=== PATIENT | female | born 1990 | race American Indian/Alaskan Native ===

== ENCOUNTER 2018-03-30 22:44 | Outpatient (CLI) | payer OTHER ==
[2018-03-30 23:37] VITALS: BP 117/70
--- NOTE | 2018-03-31 01:32 | Ultrasound Report ---
FINAL REPORT EXAM: US OB BPP WO NON-STRESS HISTORY: ?leaking fluid TECHNIQUE: Real-time sonography was performed of the gravid uterus and images are submitted for inte rpretation. PRIORS: None. FINDINGS: The heart is beating at a rate of 146 beats per minute. Amniotic fluid index is normal at 15.8 cm. Biophysical profile: Breathin Movement: 2 Tone: 2 Fluid volume: 2 IMPRESSION: Normal biophysical profile, 09/29
--- NOTE | 2018-03-31 01:36 | Ultrasound Report ---
FINAL REPORT EXAM: US OB LIMITED HISTORY: ?leaking fluid TECHNIQUE: Limited real-time sonography was performed of the gravid uterus and images are submitted for interpretation. PRIORS: None. FINDINGS: There is a single fetus in the uterus in a cephalic presentation. The amniotic fluid index is normal at 15.8 cm. The heart is beating at a rate of 146 beats per minute. IMPRESSION: Normal amniotic fluid index
== END 2018-03-31 01:36 | disposition home or self-care (01) ==
LOC: TRG 22:44
PROVIDERS: ATTEND Obstetrics & Gynecology
DX: O42.92 Full-term premature rupture of membranes, unspecified as to length of time between rupture and onset of labor (principal); Z3A.40 40 weeks gestation of pregnancy; Z87.891 Personal history of nicotine dependence; Z91.040 Latex allergy status
CPT/HCPCS: 59025; 76815; 76819

== ENCOUNTER 2018-04-01 16:05 | Inpatient (IN) | payer OTHER ==
[2018-04-01] MEDS ORDERED: XYLOCAINE 2% INFILTRATI ONE (16:43)
[2018-04-01] MEDS ORDERED: BRETHINE IVP PRN (16:43)
[2018-04-01] MEDS ORDERED: MINERAL OIL PO PRN (16:43)
[2018-04-01] MEDS ORDERED: BRETHINE SUB-Q PRN (16:43)
--- NOTE | 2018-04-01 16:43 | History and Physical Report ---
History of Present Illness Date of examination: 04/01/18 Date of admission: 04/01/2018 Chief complaint: contractions History of present illness: Pt presents in active labor. EDC Confirmation: 03/30/2018 Gestational Age: 13 2/7 weeks Past History : 1 Term Births: 0 Premature Births: 0 Living Children: 0 Para: 0 Mult. Births: 0 Prev : 0 Prev. attempt? 0 Aborta: 0 Elect. Ab: 0 Spont. Ab: 0 Ectopics: 0 Past Medical History: Chronic BV Past Surgical History: negative Past Medical History Anesthesia Complications: negative Anemia: negative Autoimmune Disorder: negative Bleeding Disorder: negative Blood Transfusions: negative Breast Disease: negative Diabetes: negative Heart Disease: negative Hypertension: negative Hepatitis/Liver Disease: negative Kidney Disease/UTI: negative Neurologic/Epilepsy/Migraines: negative Phlebitis/Varicosities: negative Psychiatric: negative Pulmonary Disease/Asthma: negative Thyroid Disease: negative Hospitalizations: negative Surgery (Non-bleach mixer): negative Abnormal PAP: negative Family Hx: No known family medical hx Social Hx: former smoker no ETOH or drugs Works at [employer] Infection History Hx of STD: none HIV Risk Eval: no Hepatitis B Risk Eval: low risk Personal hx. of genital herpes: no Partner hx. of genital herpes: no Rash, Viral, or Febrile illness since last LMP? no Varicella/Chicken Pox Status: Previous Disease Genetic History Congenital Heart Defect: Mom: no Dad: no Jaiden Disease: Mom: no Dad: no Thalassemia Mom: no Dad: no Neural Tube Defect Mom: no Dad: no Down's Syndrome Mom: no Dad: no Jaspal-Sachs Mom: no Dad: no Sickle Cell Disease/Trait Mom: no Dad: no Hemophilia Mom: no Dad: no Muscular Dystrophy Mom: no Dad: no Cystic Fibrosis Mom: no Dad: no [place] Chorea Mom: no Dad: no Mental Retardation Mom: no Dad: no Fragile X Mom: no Dad: no Other Genetic/Chromosomal Disorder Mom: no Dad: no Child w/other defect Mom: no Dad: no Enviromental Exposures Xray Exposure: no Medication, drug, or alcohol use since LMP: no Chemical/Other Exposure: no Exposure to Cat Liter: no Hx of Parvovirus (Fifth Disease): no Occupational Exposure to Children: none Active Medications (reviewed today): None Current Allergies (reviewed today): * LATEX (Critical) Past History Past Medical History: no pertinent history Past Surgical History: no surgical history Family/Genetic History: none Social history: no significant social history, single - Obstetrical History Expected Date of Delivery: 03/30/18 Actual Gestation: 40 Week(s) 2 Day(s) : 1 Medications and Allergies Allergies Allergy/AdvReac Type Severity Reaction Status Date / Time Latex, Natural Rubber Allergy Itching Verified 03/31/18 00:00 Home Medications Medication Instructions Recorded Confirmed Last Taken Type Triamcinolone 0.1% [Kenalog] 1 applic TP PRN 01/30/18 03/30/18 03/30/18 History - Vital Signs Vital signs: Vital Signs Pulse BP 78 114/73 04/01/18 16:22 04/01/18 16:22 Temp Pulse Resp BP Pulse Ox 98.4 F 78 18 114/73 04/01/18 16:26 04/01/18 16:22 04/01/18 16:26 04/01/18 16:22 - Physical Exam Lungs: Positive: Clear to auscultation, Normal air movement Abdomen: Positive: normal appearance, soft. Negative: distention, tenderness Genitourinary (Female): Positive: normal external genitalia, normal perenium, o ther (no lesions noted) Vulva: both: normal (no lesions noted) - Obstetrical FHR: category 1 Results Result Diagrams: 04/01/18 17:33 All other labs normal. Assessment and Plan - Patient Problems (1) 40 weeks gestation of Current Visit: Yes Status: Acute (2) Active labor at term Current Visit: Yes Status: Acute
[2018-04-01] MEDS ORDERED: LACTATED RINGERS 1,000 ML IV SCH (17:00)
[2018-04-01] MEDS ORDERED: PITOCin/NS 30 UNIT/500ML 30 UNITS/500 ML BAG IV SCH ×2 (17:00)
[2018-04-01] MEDS ORDERED: PITOCin/NS 20 UNIT/1000ML DRIP 20 UNITS/1,000 ML BAG IV SCH (17:00)
[2018-04-01] MEDS: SUBLIMAZE IV PRN ×2 (17:44→21:34)
[2018-04-01 17:57] LABS: Hematocrit 35.7 % (30.3-42.9); Hemoglobin 12.4 gm/dl (10.1-14.3); Mean Corpuscular HGB Conc 35 % (30-34); Mean Corpuscular Volume 89 fl (79-97); Platelet Count 245 K/mm3 (140-440); Red Cell Distribution Width 15.6 % (13.2-15.2)
--- NOTE | 2018-04-01 19:04 | Progress Note ---
Assessment and Plan - Patient Problems (1) 40 weeks gestation of Current Visit: Yes Status: Acute (2) Active labor at term Current Visit: Yes Status: Acute Plan to address problem: -wants little intervention at this time -anticipate -will re-evaluate in 2hours to access need for AROM with internal monitor placement. Subjective - Subjective Date of service: 04/01/18 Principal diagnosis: IUP at 40 2/7 with active labor Interval history: Pt c/o pain with the contractions and request more meds. I advised pt that she just hat iv pain meds and that they are scheduled for every 2 hours and she is not able to get more meds at this time. I d/w need to AROM to help her labor along/progress. She states she agrees with this. I d/w and her mother and other support person that if her cx remains at 5-6cm in 2hrs when I come back to examine her that I would AROM at this time or if baby is showing signs of distress I would AROM her. I s/w getting epidural, pt mother encouraged her that she can labor without out it. I advised that she is in active labor and can obtain epidural whenever she desires. She and her mother expressed understanding. Patient reports: movement normal, contractions, no new complaints, no loss of fluid Objective - Vital Signs Vital Signs: Vital Signs - 12hr 04/01/18 04/01/18 04/01/18 16:22 16:26 17:55 Temperature 98.4 F 96.5 F L Pulse Rate 78 57 L Respiratory 18 14 Rate Blood Pressure 114/73 118/69 Blood Pressure 118/69 [Left] - Exam FHR: category 1 Cervical Dilatation: 6 Cervical Effacement Percentage: 90 station: -1 Uterine Contraction Pattern: Regular Uterine Tone Measurement Phase: Resting Uterine Contraction Intensity: Moderate - Labs Labs: Abnormal Labs 04/01/18 17:33 MCHC 35 H RDW 15.6 H Laboratory Results - last 24 hr 04/01/18 04/01/18 17:33 17:33 WBC 9.5 RBC 4.00 Hgb 12.4 Hct 35.7 MCV 89 MCH 31 MCHC 35 H RDW 15.6 H Plt Count 245 Blood Type O POSITIVE Antibody Screen Negative
--- NOTE | 2018-04-01 21:34 | Progress Note ---
Assessment and Plan - Patient Problems (1) 40 weeks gestation of Current Visit: Yes Status: Acute (2) Active labor at term Current Visit: Yes Status: Acute Plan to address problem: -S/P AROM -LABOR PROGRESSING -ANTICIPATE -DECLINES EPIDURAL SO WILL GIVE IV PAIN MEDS AT THIS TIME Subjective - Subjective Date of service: 04/01/18 Principal diagnosis: IUP at 40 2/7 with active labor Interval history: s/p AROM with clear fluid noted. Pt tolearate procedure well. Cx 8/100/0 after AROM. No internal monitors placed as pt making good cervical change and for the most part is now back on labor curve. No pitocini has been started as she is tito regularly on her own. Plan of care which is expectant management and intervention when/if needed was d/w pt and her mother and foc present at the bedside. All questions were addressed and answered. Patient reports: movement normal, contractions, no new complaints, no loss of fluid Objective - Vital Signs Vital Signs: Vital Signs - 12hr 04/01/18 04/01/18 04/01/18 16:22 16:26 17:55 Temperature 98.4 F 96.5 F L Pulse Rate 78 57 L Respiratory 18 14 Rate Blood Pressure 114/73 118/69 Blood Pressure 118/69 [Left] - Exam FHR: category 1 Cervical Dilatation: 8 (AROM: CLEAR FLUID NOTED) Cervical Effacement Percentage: 100 station: 0 Uterine Contraction Pattern: Regular Uterine Tone Measurement Phase: Resting Uterine Contraction Intensity: Moderate Extremities: normal Deep Tendon Reflex Grade: Normal +2 - Labs Labs: Abnormal Labs 04/01/18 17:33 MCHC 35 H RDW 15.6 H Laboratory Results - last 24 hr 04/01/18 04/01/18 17:33 17:33 WBC 9.5 RBC 4.00 Hgb 12.4 Hct 35.7 MCV 89 MCH 31 MCHC 35 H RDW 15.6 H Plt Count 245 Blood Type O POSITIVE Antibody Screen Negative
[2018-04-02] MEDS ORDERED: XYLOCAINE 2% INFILTRATI ONE (00:04)
[2018-04-02] MEDS ORDERED: METHERGINE IM ONE ×2 (00:17→03:27)
--- NOTE | 2018-04-02 00:50 | Procedure Note ---
OB Delivery Note - Delivery Date of Delivery: 04/01/18 (@2349pm) Surgeon: WERO PLATA Estimated blood loss: other (400cc) - Vaginal Delivery presentation: vertex Delivery position: OA Delivery induction: none Delivery augmentation: rupture of membranes Delivery monitor: external FHT, external uterine Route of delivery: Delivery placenta: manual (due to placenta being at the cervix and cord starting to separate from placenta) Delivery cord: nuchal cord (times two. Tight. clamped x2 and easily reduced) Episiotomy: none Delivery laceration: 2nd degree (peineal) Delivery repair: vicryl (3-0) Anesthesia: intravenous (lidocaine w/o epi) Delivery comments: Delivery as above was not complicated. Ant shoulder and rest of infant delivered without difficulty. Nuchal cord clamped and reduced as noted above. placed on maternal abdomen. Placenta delivered with manual extraction as above after cord blood was collected. 2nd degree perineal laceration was noted and repaired with 3-0 vicrly in usual fashion. EBL 400ml. Uterine atony noted and relived with bimanual massage and methergine im times one dose. Mother and infant stable in LDR. - A at 1 minute: 8 at 5 minutes: 9 Gender: Male (8lbs 10.6oz)
[2018-04-02] MEDS ORDERED: LANSINOH TP PRN (00:51)
[2018-04-02] MEDS ORDERED: TUCKS PAD TP PRN (00:51)
[2018-04-02] MEDS ORDERED: DULCOLAX PR PRN (00:51)
[2018-04-02] MEDS ORDERED: TYLENOL PO PRN (00:51)
[2018-04-02] MEDS ORDERED: ZOFRAN IV PRN (00:51)
[2018-04-02] MEDS ORDERED: SODIUM CHLORIDE FLUSH SYRINGE 10 ML IV NR (01:00)
[2018-04-02] MEDS ORDERED: PITOCin/NS 20 UNIT/1000ML DRIP 20,000 MILLIUNITS/1,000 ML BAG IV ONE (02:32)
[2018-04-02] MEDS: IBUPROFEN PO SCH ×3 (03:20→17:33)
[2018-04-02] MEDS ORDERED: PITOCin/NS 20 UNIT/1000ML DRIP 20 UNITS/1,000 ML BAG IV SCH (04:00)
--- NOTE | 2018-04-02 09:16 | Progress Note ---
Assessment and Plan - Patient Problems (1) Encounter for full-term uncomplicated delivery Current Visit: Yes Status: Acute Plan to address problem: day #1. Patient without nausea vomiting. Patient tolerating diet well Patient without fever. is doing well. Will continue routine care. Patient's hematocrit is pending. Subjective - Subjective Date of service: 04/02/18 Principal diagnosis: IUP at 40 2/7 with active labor Patient reports: appetite normal, voiding normally, pain well controlled [place]: doing well Objective - Vital Signs Latest vital signs: Vital Signs Temp Pulse Resp BP BP Pulse Ox 04/02/18 08:05 98.3 F 102 H 18 115/73 97 04/02/18 03:00 97.8 F 103 H 18 113/74 100 04/02/18 02:00 104 H 20 111/73 111/73 04/02/18 01:55 118 H 115/70 04/02/18 01:50 104 H 107/71 04/02/18 01:46 112 H 102/64 04/02/18 01:45 112 H 20 102/64 04/02/18 01:35 115 H 126/72 04/02/18 01:30 109 H 111/72 04/02/18 01:27 101 H 109/72 04/02/18 00:40 98.1 F 133 H 20 129/57 04/02/18 00:39 133 H 129/57 04/01/18 23:39 106 H 144/90 04/01/18 22:39 83 139/92 04/01/18 21:41 97.6 F 65 16 106/72 04/01/18 21:39 65 106/72 04/01/18 21:34 16 04/01/18 17:55 96.5 F L 57 L 14 118/69 118/69 04/01/18 16:26 98.4 F 18 04/01/18 16:22 78 114/73 Intake and Output 04/01/18 04/02/18 04/02/18 22:59 06:59 14:59 Output Total 300 Balance -300 Output: Urine 300 Void 300 Other: Total, Output Amount 300 # Voids Void 1 Weight 181 lb Estimated Blood Loss 100 - Exam Breasts: Present: deferred Cardiovascular: Present: Regular rate Lungs: Present: Normal air movement Abdomen: Present: normal appearance, soft Uterus: Present: fundal height at umbilicus Extremities: Present: edema - Labs Labs: Abnormal lab results 04/01/18 Range/Units 17:33 MCHC 35 H (30-34) % RDW 15.6 H (13.2-15.2) %
[2018-04-02 13:38] LABS: Hematocrit 28.8 % (30.3-42.9); Hemoglobin 9.8 gm/dl (10.1-14.3)
[2018-04-03] MEDS: IBUPROFEN PO SCH ×3 (05:36→17:42)
[2018-04-03] MEDS ORDERED: BOOSTRIX IM ONE (06:00)
--- NOTE | 2018-04-03 09:56 | Discharge Summary ---
Providers - Providers Date of Admission: 04/01/18 17:21 Date of discharge: 04/03/18 Attending physician: WERO PLATA Primary care physician: WERO LPATA Hospitalization Reason for admission: active labor Delivery: Episiotomy: none Laceration: 2nd degree complications: none Discharge diagnosis: IUP at term delivered [place] baby: male Hospital course: See dictated H&P. Patient was admitted underwent a normal spontaneous vaginal delivery. Her course was benign. She was afebrile throughout her stay. Her day 1 hematocrit was 28.8%. Patient is breast-feeding and desires ParaGard for control . Condition at discharge: Good Disposition: DC-01 TO HOME OR SELFCARE - Discharge Diagnoses (1) Encounter for full-term uncomplicated delivery Status: Acute Plan - Discharge Medications Prescriptions: Lidocain2.5%/Prilocai2.5% [Emla] 5 gm TP ONCE #1 tube Ibuprofen [Motrin 800 MG tab] 800 mg PO Q6H PRN #30 tablet PRN Reason: Pain - Provider Discharge Summary Activity: routine, no sex for 6 weeks, no strenuous exercise Diet: routine Instructions: routine Additional instructions: [] Smoking cessation referral if applicable(refer to patient education folder for contact #) [] Refer to [facility] Booklet Call your doctor immediately for: * Fever > 100.5 * Heavy vaginal bleeding ( >1 pad per hour) * Severe persistent headache * Shortness of breath * Reddened, hot, painful area to leg or breast * Drainage or odor from incision. *Patient follow up in office in 4 weeks. Patient called office to schedule circumcision for her son. - Follow up plan Follow up: WERO PLATA MD [Primary Care Provider] - 7 Days
[2018-04-03] MEDS ORDERED: MILK OF MAGNESIA PO ONE (15:00)
[2018-04-03 16:27] VITALS: BP 91/46
== END 2018-04-03 18:43 | disposition home or self-care (01) | DRG 775 ==
LOC: TRG 16:05 → LD 17:16 → OB 04-02 02:50
PROVIDERS: ADMIT Obstetrics & Gynecology; ATTEND Obstetrics & Gynecology
PROC: 0KQM0ZZ Repair Perineum Muscle, Open Approach (ICD-10-PCS; principal; 2018-04-01)
PROC: 10E0XZZ Delivery of Products of Conception, External Approach (ICD-10-PCS; 2018-04-01)
PROC: 10907ZC Drainage of Amniotic Fluid, Therapeutic from Products of Conception, Via Natural or Artificial Opening (ICD-10-PCS; 2018-04-01)
DX: O69.1XX0 Labor and delivery complicated by cord around neck, with compression, not applicable or unspecified (principal); O70.1 Second degree perineal laceration during delivery; O69.89X0 Labor and delivery complicated by other cord complications, not applicable or unspecified; Z37.0 Single live birth; Z3A.40 40 weeks gestation of pregnancy; Z91.040 Latex allergy status
CPT/HCPCS: 36415; 59025; 85014; 85018; 85027; 86592; 86850; 86900; 86901; 96360; 96361; 96374; 96376; G0378; J2210; J2590; J3010; J7120